=== PATIENT | female | born 1975 | race Caucasian/White ===

== ENCOUNTER 2017-02-07 13:44 | Inpatient (IN) ==
[2017-02-07 14:17] LABS: MANUAL DIFF NEEDED? NO
[2017-02-07 14:23] LABS: BASO% 0.3 % (0.0-0.8); EOS# 0.27 X1000 (0.0-0.7); EOS% 2.3 % (0.0-10.0); HEMATOCRIT 42.2 % (37.0-47.0); HEMOGLOBIN 13.6 g/dL (12.0-16.0); IMM GRAN# 0.02 X1000 (0.0-0.04); IMM GRAN% 0.2 % (0.0-0.5); LYMPH# 1.79 X1000 (1.2-3.4); LYMPH% 15.2 % (20.5-51.1); MCH 29.6 PG (27-31); MCHC 32.2 g/dL (33-37); MCV 91.9 FL (81-99); MONO# 0.66 X1000 (0.11-0.59); MONO% 5.6 % (1.7-9.3); MPV 11.7 FL (7.4-10.4); NEUT% 76.4 % (42.2-75.2); PLT 256 X1000 (130-400); RBC 4.59 XMIL (4.2-5.4)
[2017-02-07 14:37] LABS: INR 1.02; PROTIME 10.7 Seconds (9.2-11.7); PTT 25.7 Seconds (22.0-36.0)
--- NOTE | 2017-02-07 14:46 | EKG Report ---
Test Performed on : 02/07/2017 1:53:10 PM Test Reason : Stroke like symptoms Blood Pressure : / mmHG Vent. Rate : 078 BPM Atrial Rate : 073 BPM P-R Int : 000 ms QRS Dur : 092 ms QT Int : 386 ms P-R-T Axes : 000 019 041 degrees QTc Int : 440 ms Accelerated Junctional rhythm. Abnormal ECG When compared with ECG of 26-AUG-2015 21:55, Junctional rhythm. has replaced Sinus rhythm. Unconfirmed Result
[2017-02-07 14:56] LABS: AGAP 15; ALBUMIN 3.3 g/dL (3.5-5.0); ALKALINE PHOSPHATASE 81 U/L (32-104); BUN 8 mg/dL (8-22); CALCIUM 8.6 mg/dL (8.8-10.2); CHLORIDE 98 mmol/L (98-107); COSMO 280; GOT 12 U/L (10-30); GPT 13 U/L (10-36); POTASSIUM 3.7 mmol/L (3.5-5.1); SODIUM 136 mmol/L (136-145); TCO2 23 mmol/L (25-35); TOTAL BILIRUBIN 0.59 mg/dL (0.20-1.00); TOTAL PROTEIN 6.7 g/dL (6.3-8.3)
--- NOTE | 2017-02-07 15:09 | Diag Imaging Result Doc PS360 ---
EXAM: CT HEAD W/O CONTRAST HISTORY: stroke like symptoms TECHNIQUE: CT of the head without contrast with dose reduction (clarity.) COMMENT: There is no evidence of mass effect, shift, abnormal extra-axial fluid collection, hydrocephalus or bleed. Compared to 11/21/2015 there is been no significant change in the appearance of the brain. The visualized paranasal sinuses are clear. IMPRESSION: No evidence of acute intracranial disease Electronically signed by Heath Campos 02/07/2017 3:07 PM
--- NOTE | 2017-02-07 15:39 | Diag Imaging Result Doc PS360 ---
EXAM: CHEST-2 VIEWS HISTORY: stroke like symptoms TECHNIQUE: AP sitting and lateral chest COMMENT: The appearance of the chest has not changed significantly since 09/26/2014. IMPRESSION: Stable chest. Electronically signed by Heath Campos 02/07/2017 3:37 PM
[2017-02-07 20:29] LABS: URINE MICRO REVIEW NEEDED? NO; URINE SOURCE CLEAN CATCH
[2017-02-07] MEDS ORDERED: GLUCAGON SUBQ PRN (20:31)
[2017-02-07 20:35] LABS: BILIRUBIN URINE NEGATIVE (NEGATIVE); BLOOD URINE NEGATIVE (NEGATIVE); COLOR ORANGE; GLUCOSE URINE 1000 mg/dL (NEGATIVE); LEUKOCYTES URINE TRACE (NEGATIVE); NITRITE URINE NEGATIVE (NEGATIVE); PH URINE 5.5; PROTEIN URINE NEGATIVE (NEGATIVE); SP GRAVITY URINE 1.024; TURBIDITY URINE TURBID (CLEAR); UROBILINOGEN URINE 2 mg/dL (NORMAL)
[2017-02-07 20:37] LABS: UR EPITHELIAL CELLS <10 /HPF (<10); URINE BACTERIA 1+ /HPF; URINE CULTURE NEEDED? YES; URINE RBC <10 /HPF (<10); URINE WBC <10 /HPF (<10)
[2017-02-07 21:00] LABS: UR AMPHETAMINES MT NONE DETECTED (NONE DETECT); UR BARBITUATES MT NONE DETECTED (NONE DETECT); UR BENZODIAZ MT NONE DETECTED (NONE DETECT); UR CANNABIS MEDTOX NONE DETECTED (NONE DETECT); UR COCAINE MT NONE DETECTED (NONE DETECT); UR METHADONE MEDTOX NONE DETECTED (NONE DETECT); UR OPIATES MT NONE DETECTED (NONE DETECT); UR OXYCODONE MEDTOX NONE DETECTED (NONE DETECT); UR PCP MEDTOX NONE DETECTED (NONE DETECT)
--- NOTE | 2017-02-07 22:14 | HISTORY AND PHYSICAL ---
PCP: None. CHIEF COMPLAINT: Weakness on the left side of her body. HPI: Mrs. Trejo is a 41-year-old female with past medical history of diabetes type 2, an OK 4 years ago, Crohn disease and frequent shingles outbreaks who comes to the hospital reporting left- sided body weakness in upper and lower extremities. The patient states that yesterday in the morning around noon when she woke up she could not feel her left foot at all. The patient had trouble walking throughout the day then numbness and tingling gradually became worse. The patient states that her 16-year-old daughter noticed that she had drooping on the left side of her mouth and patient has been drooling since then. Patient has been having trouble walking since she cannot feel her foot. Initially patient did not want to stay in the hospital due to has insurance issues. However she decided to stay for further workup. REVIEW OF SYSTEMS: Is positive for numbness and tingling of her face on the left side, decreased strength in her left arm and left leg. All other systems are negative except as stated above. ALLERGIES: Penicillin, cephalosporins, Zithromax, steroids. HOME MEDICATION: The patient is supposed to be taking 18 units of Lantus every day in the morning. However patient is not compliant and takes her insulin only when her glucose levels are high. Patient states in the last few days her glucose has been around 200 and has not been taking her medication. Also she is supposed to be taking metformin 500 mg twice a day but she has not been taking it. FAMILY HISTORY: Father of an OK. Mother had 6 strokes, 4 MIs and breast cancer. SOCIAL HISTORY: Patient smokes 1 pack every 2-3 days. Denies using alcohol or illicit drugs. PHYSICAL EXAM: VITAL SIGNS: Temperature 98.3 degrees, pulse 69, respirations 20, blood pressure 149/88. Oxygen saturation 99% on room air. GENERAL: Patient is alert and oriented x3. No acute distress. HEENT: Head is normocephalic, atraumatic. Eyes, CHIN. Moist mucous membranes. Slight drooping on the left side of her face. NECK: Supple. No JVD. CHEST: Clear to auscultation. Good air entry in both lung miguel. No wheezing, rales. CARDIOVASCULAR: S1, S2. No rubs, murmurs, or gallops. ABDOMEN: Soft, nondistended, nontender. EXTREMITIES: No lower extremity edema. Right side upper and lower extremities +5/5. Left hand strength +1/5. Left lower extremity strength +1/5. Patient is unable to lift her heel off the bed. NEUROLOGIC: When patient is asked to smile there is an obvious drooping on the left side of the mouth. The patient is unable to blow her cheeks especially on the left side. As mentioned above, decreased strength in the left upper and lower extremities. The patient has a positive pronator drift on the left side. The patient cannot lift her left heel out of bed. PSYCH: Normal mood and affect. LABORATORY DATA: White blood cell count 11.8, hemoglobin 13.6, hematocrit 42.2, platelets 256,000. Sodium 136, potassium 3.7, BUN 8, creatinine 0.5. LFTs within normal limits. Troponin #1 negative. Urine toxicology negative. UA negative. HCG negative. DIAGNOSTIC IMAGING: Head CT shows no evidence of acute intracranial disease. Chest x-ray is stable. No changes since 2014. ASSESSMENT AND PLAN: 1. Stroke. The patient has had her symptoms over 24 hours now. The patient has as mentioned above pronator drift and significant weakness on the left side of her body and drooping of the left side of her mouth. The patient has been started on full dose aspirin and statin. We will obtain a brain MRA and neck MRA, also an echocardiogram and a neurology consult for tomorrow. PT was asked to evaluate the patient tomorrow as well. 2. Diabetes type 2. The patient is not compliant with her medication. We will continue her home dose of insulin 18 units in the morning and she is also on an insulin sliding scale. Glucose is available p.r.n. hypoglycemia. A1c is pending. Tomorrow we will obtain a lipid panel as well. 3. Coronary artery disease. As mentioned above, we will start patient on aspirin and a statin. 4. Crohn disease, stable. cc: Aicha Herrera MD
[2017-02-07] MEDS ORDERED: HUMALOG SUBQ SCH (22:17)
[2017-02-08] MEDS: LOVENOX SUBQ SCH ×2 (00:02→21:41)
[2017-02-08] MEDS: ZOCOR PO SCH ×2 (00:03→21:41)
[2017-02-08] MEDS: HUMALOG SUBQ SCH ×5 (00:03→21:41)
[2017-02-08 06:32] LABS: HEMOGLOBIN A1C 10.7 % (4.8-6.0)
[2017-02-08] MEDS ORDERED: INSULIN PEN NEEDLES ONE (07:12)
[2017-02-08] MEDS ORDERED: LANTUS SUBQ SCH (09:00)
--- NOTE | 2017-02-08 13:09 | Diag Imaging Result Doc PS360 ---
EXAM: MRI BRAIN W W/O CONTRAST - 02/08/2017 HISTORY: R/O stroke TECHNIQUE: Images are obtained prior to and following Omniscan administration. COMPARISON: CT head of 02/07/2017 FINDINGS: There are scattered small white matter signal abnormalities. The patient this age, these could relate to demyelinating disease or to chronic microvascular ischemic changes. The diffusion weighted images show no areas of restricted diffusion (no evidence of acute infarct). There is no evidence of hemorrhage, mass effect, midline shift, or hydrocephalus. There is no abnormal enhancement identified. There is some cerebellar tonsillar ectopia which may relate to Chiari I malformation. IMPRESSION: Scattered small white matter signal abnormalities. These may relate to demyelinating disease or to chronic microvascular ischemic changes. There is no evidence of acute infarct. No hemorrhage, mass, or abnormal enhancement seen. Possible Chiari I malformation noted. Electronically signed by Efren Perkins 02/08/2017 1:06 PM
--- NOTE | 2017-02-08 13:11 | Diag Imaging Result Doc PS360 ---
EXAM: MRA BRAIN W/O CONTRAST - 02/08/2017 HISTORY: stroke TECHNIQUE: Without contrast [id number] MR angiogram brain with reconstructed 3-D rotating MIP images. COMPARISON: None. FINDINGS: There is no evidence of major intracranial arterial occlusion. There is no substantial stenosis of major intracranial arteries identified. There is no aneurysm identified. IMPRESSION: Unremarkable exam. Electronically signed by Efren Perkins 02/08/2017 1:09 PM
--- NOTE | 2017-02-08 13:15 | Diag Imaging Result Doc PS360 ---
EXAM: MRA NECK W/CONT - 02/07/2017 HISTORY: stroke TECHNIQUE: MR angiogram of the carotid circulation in the neck obtained following Omniscan administration, reconstructed 3-D rotating MIP images. COMPARISON: None. FINDINGS: There is no right carotid stenosis identified. There is no left carotid stenosis identified. IMPRESSION: Unremarkable exam. Electronically signed by Efren Perkins 02/08/2017 1:13 PM
[2017-02-08] MEDS: ASPIRIN PO SCH (13:41)
--- NOTE | 2017-02-08 13:56 | PROGRESS NOTE ---
DATE: 02/08/2017 SUBJECTIVE: This patient states that she is feeling better but she is still having mild weakness and loss of sensation mostly at the level of the left lower extremity, she has no problem swallowing, no double vision, no headache, no shortness of breath. No nausea, vomiting, no diarrhea, no constipation. OBJECTIVE: Vital Signs: Temperature 98.2 degrees, pulse 74, respiratory rate 20, blood pressure 143/62, oxygen saturation 98 on room air. HEENT: Head normocephalic. No trauma. PERRLA. Neck: Supple. No JVD. No masses. Central trachea. Chest: Clear to auscultation. No wheezing. No rales. Abdomen: Soft, nontender, nondistended. No hepatosplenomegaly. Extremities: No edema. No clubbing. No cyanosis. Neurologic: Left over extremities with some mild weakness and she refers some tingling sensation on her fingers. Lower extremities. It looks like she has left lower extremity weakness 4/5 with some loss of sensation. ASSESSMENT AND PLAN: 1. Rule out stroke, pending MRI, MRA of the brain and neck report, neurology department has been consulted. Pending recommendations. 2. Type 2 diabetes. This patient is not compliant with her medications. Will continue with home dose of insulin and I will continue with sliding scale insulin for now. Hemoglobin A1c is 10.7 so it looks like this patient is not taking care of her diabetes at home. 3. History of coronary artery disease. This patient has been started on aspirin and statin. Apparently as per the patient, she has a remote history of myocardial infarction but I do not have any records from that. 4. Questionable history of Crohn's disease stable. 5. Hypertension. Her blood pressure has been stable. Continue to monitor. Since this patient has diabetes I will start this patient on a low dose of lisinopril. cc: Deni Beck MD
[2017-02-09 05:38] LABS: MANUAL DIFF NEEDED? NO
[2017-02-09 05:46] LABS: BASO% 0.4 % (0.0-0.8); EOS# 0.31 X1000 (0.0-0.7); HEMATOCRIT 38.2 % (37.0-47.0); HEMOGLOBIN 12.4 g/dL (12.0-16.0); IMM GRAN# 0.02 X1000 (0.0-0.04); IMM GRAN% 0.3 % (0.0-0.5); LYMPH# 1.57 X1000 (1.2-3.4); LYMPH% 20.3 % (20.5-51.1); MCH 29.7 PG (27-31); MCHC 32.5 g/dL (33-37); MCV 91.4 FL (81-99); MONO# 0.73 X1000 (0.11-0.59); MONO% 9.4 % (1.7-9.3); MPV 11.7 FL (7.4-10.4); NEUT% 65.6 % (42.2-75.2); PLT 243 X1000 (130-400); RBC 4.18 XMIL (4.2-5.4)
[2017-02-09 06:16] LABS: AGAP 16; BUN 12 mg/dL (8-22); CALCIUM 8.3 mg/dL (8.8-10.2); CHLORIDE 96 mmol/L (98-107); COSMO 284; POTASSIUM 3.6 mmol/L (3.5-5.1); SODIUM 137 mmol/L (136-145); TCO2 25 mmol/L (25-35)
[2017-02-09] MEDS: HUMALOG SUBQ SCH ×2 (07:29→12:49)
[2017-02-09] MEDS ORDERED: LANTUS SUBQ SCH (07:52)
[2017-02-09] MEDS ORDERED: PRINIVIL PO SCH (09:00)
--- NOTE | 2017-02-09 09:31 | ECHO REPORT ---
ORDER DATE: 02/07/2017 MEASUREMENTS: 1. Left ventricular end-diastolic diameter 5.4. 2. End systolic diameter 3.5. 3. Septal thickness 0.7. 4. Posterior wall thickness 1.0. 5. Left atrium 4.1. 6. Aortic root 2.5. SUMMARY: 1. Fair quality study. 2. Aortic valve is trileaflet and opens normally on 2-dimensional images. Mitral, tricuspid, and pulmonic valves are without evidence of structural abnormality. There is mild mitral regurgitation and trace tricuspid regurgitation. The aortic root is normal in size. 3. Normal left ventricular dimensions suggested. Estimated left ejection fraction appeared to be at least 60%. No regional wall motion abnormalities are evident. Left atrium is mildly enlarged. Right atrium and right ventricle are normal in size with normal right ventricular systolic function. 4. No pericardial effusion. 5. Inferior vena cava not well seen. CONCLUSIONS: 1. Mild mitral regurgitation. 2. Estimated left ejection fraction greater than 60%. 3. Mild left atrial enlargement. cc: MD Aicha Ramirez MD
[2017-02-09] MEDS: ASPIRIN PO SCH (09:50)
[2017-02-09 13:35] VITALS: BP 101/60
--- NOTE | 2017-02-09 14:53 | CONSULTATION ---
DATE OF CONSULTATION: 02/09/2017 Ms. Trejo is 41 years old. She was admitted with question of stroke. History from the patient is that she felt bad, tired, weak all over 3 days ago. She did not notice any focal neurologic problem then. On the day of admission 2 days ago, family noticed facial drooping and patient noticed left side felt numb and possibly weaker compared to the right. She presented to the hospital and was admitted. Workup includes initial noncontrast CT showing nothing acute. Brain MRI showed a good bit of white matter signal, consistent with micro-ischemic disease, but nothing focal or acute. Brain MRA and cervical MRA were unremarkable. Echocardiogram was unremarkable. She has had blood sugars elevated 200s and 300s this admission. She presented with systolic blood pressure 130s-140s. She started lisinopril here and blood pressures have been 90s to 110s systolic since then. Interestingly, she was having headache daily for the last several months, but no headache in the last 2 days since starting lisinopril. PAST MEDICAL HISTORY: She has a past history of episodic headache, usually several headaches per year. FAMILY HISTORY: There is family history of headache in 2 sisters, possibly mother. SOCIAL HISTORY: She had recently reduced her caffeine intake from 6 or 8 sodas daily to about one soda daily. CASE COORDINATOR HISTORY: She has recently noted irregular menstrual periods. She has never used hormones. There is history of head injury with loss of consciousness when she fell and struck her head about a year ago. She recovered without focal neurologic features. There is not history of more recent head injury. She has never had diagnosed stroke or other neurologic event. On exam, she is awake, alert, attentive. She seems appropriate. Speech is not dysarthric. Language function is intact. Memory seems good. Head and neck are unremarkable. Visual miguel are full, tested grossly. Facial motility appears symmetric now. Facial sensation is intact. Gag is intact. Tongue is midline. She can hear. Shoulder shrug is equal. Strength is normal in the arms and legs, equal on the left and right. Tone is symmetric in the limbs. She did well on [id number] testing bilaterally. She reports diminished pinprick appreciation in a stocking pattern bilaterally. This is subjectively a little more prominent on the left than the right, but there is not a definite focal finding. She reports difficulty with proprioception at the great toe bilaterally, also a little worse on the left. I did not test her gait. Reflexes are 1+ at the wrists and absent at the ankles bilaterally. Plantar response is silent bilaterally. IMPRESSION: 1. Recent subjective left-sided numbness and generally weak all over feeling. I suspect this is more likely migraine than focal ischemic problem. I do not find a definite motor deficit now. The sensory findings are more consistent with peripheral neuropathy, likely diabetic neuropathy, than with a lateralizing COTTAGE ATTENDANT event. I encouraged her to be aggressive with management of her cerebrovascular risk factors including quitting smoking, being aggressive with management of blood pressure and blood sugar, taking daily aspirin started here, and getting established with primary clinic so that cholesterol and other lab can be followed. 2. She has a history of episodic headache, typical of migraine with usual family history noted. She had developed a chronic daily headache syndrome recently. We discussed the possible explanations for development of daily headache, including likely combination of factors with elevated blood pressure and manjeet-menopausal sate. Caffeine reduction may have played a role. I do not see evidence of increased intracranial pressure. Negative imaging is reassuring. If she continues to have frequent headaches, we can treat that more specifically later. Thanks for asking me to see Ms. Trejo. cc: MD TARA Piedra III
--- NOTE | 2017-02-10 08:31 | DISCHARGE SUMMARY ---
ADMISSION DATE: 02/07/2017 DISCHARGE DATE: 02/09/2017 CONSULTATIONS: Dr. Alan Rock with Neurology. PERTINENT PROCEDURES: 1. Head CT showed no evidence of acute intracranial disease. 2. Echocardiogram showed mild mitral regurgitation with a EF of 60%, mild left atrial enlargement. 3. Neck MRA unremarkable. 4. Brain MRA unremarkable. 5. Brain MRI, no hemorrhage, mass or abnormal enhancement seen. Possible Chiari I malformation noted. Scattered small white matter signal abnormalities. These may relate to demyelinating disease or chronic microvascular ischemic changes. No evidence of acute infarct. DISCHARGE DIAGNOSES: 1. Rule out stroke. Head CT, brain MRI, brain MRA, and neck MRA all negative. Seen by Neurology who feels like the patient is having migraines recommends weight loss , diabetes control as well as blood pressure control. 2. Migraines, assessed by Neurology, again recommends weight loss and diabetes control as well as tight blood pressure control. 3. Diabetes mellitus type 2. She is noncompliant. Hemoglobin A1c was 10.7. The patient has been educated on being compliant. 4. History of coronary artery disease. Patient was started on aspirin and a statin. According to her, she has a remote history of myocardial infarction but we could not find any records of that. 5. Questionable history of Crohn's disease, stable. 6. Hypertension. Blood pressure has been stable. Continue with low-dose lisinopril. HOSPITAL COURSE: Ms. Trejo is a 41-year-old female with a past medical history of type 2 diabetes, questionable CT 4 years ago, Crohn disease, frequent shingles outbreaks came to the hospital reporting left-sided body weakness in the upper and lower extremities. States that when she woke up around noon, she could not feel her left foot. She had trouble walking throughout the day, then numbness and tingling gradually became worse. Her 16-year-old daughter noticed that she had drooping on the left side of her mouth, and the patient had been drooling since then, as well as having trouble walking, because she could not feel her foot. Initially, the patient did not want to stay in the hospital due to insurance issues. However, she decided to stay for further workup. Head CT was negative. She was admitted for stroke workup with a neurological consult. Echocardiogram showed mitral regurgitation and an EF of greater than 60%. Neck MRA, brain MRA and brain MRI were all essentially negative. Brain MRI showed scattered small white matter. Signal abnormalities may relate to demyelinating disease or chronic microvascular ischemic changes. No evidence of acute infarct. No hemorrhage, mass or abnormal enhancement seen. Possible Chiari I malformation noted. She was assessed by Dr. Rock who felt that the patient was having migraines. He recommended weight loss, tight control of her diabetes, as well as tight control of her blood pressures. She is being discharged home today. VITAL SIGNS: Temperature is 98.6 degrees, heart rate 100, respirations 18, blood pressure 101/60, and O2 is 96% on room air. DISPOSITION: She states she is feeling better. She still has some mild weakness and loss of sensation at the level of her left lower extremity, but no other associated problems. DISCHARGE DIET: Diabetic. DISCHARGE MEDICATIONS: As per Dr. Polanco: 1. Aspirin 81 mg p.o. daily. 2. Lantus 25 units subcutaneous q.a.m. 3. Prinivil 10 mg p.o. daily. 4. Glucophage 500 mg p.o. b.i.d. 5. Zocor 80 mg p.o. at bedtime. FOLLOWUP: Ms. Trejo is being discharged home with self care. She will need to follow up with the primary care physician, given the list has been provided to her in 1 week. She can return to the ED for any worsening of symptoms. I personally evaluated this patient face to face, images and lab work were reviewed, She has no evidence of stroke, possible migraine, I am concerned about medication noncompliance because even though she knows about her comorbidities she is not taking her meds as prescribed, I agree with the assessment and plan for this patient, and can be discharged today, Deni Guzmán MD Dictated by CAROLINE Guthrie for Deni Beck MD cc: Deni Beck MD [facility]
--- NOTE | 2017-02-10 11:51 | Carotid Study ---
DATE: 02/07/2017 PROCEDURE: Carotid duplex imaging. REFERRING PHYSICIAN: INTERPRETING PHYSICIAN: Arnie Navarro MD. TECH: INDICATIONS: The patient has left-sided weakness, left facial droop. OBSERVED DATA RIGHT LEFT Brachial Blood Pressure Carotid Pulse Bruits: Carotid/Sub DIAGRAM OF ULTRASOUND IMAGING R L RIGHT INT EXT INT EXT LEFT Ulises (cm/s) Ulises (cm/s) Subclavian 80/0 Subclavian 102/0 CCA Proximal 114/32 CCA Proximal 105/28 CCA Distal 87/30 CCA Distal 104/34 Bulb 87/26 Bulb 73/25 ICA Proximal 76/25 ICA Proximal 69/24 ICA Mid 73/27 ICA Mid 66/30 ICA Distal 79/31 ICA Distal 79/32 ECA 101/23 ECA 94/21 Vertebral 57/15 A Vertebral 90/24 A ICA/CCA Ratio 0.7 ICA/CCA Ratio 0.8 % Stenosis 0-39 % Stenosis 0-39 FINDINGS: No significant plaque is identified. PHYSICIAN INTERPRETATION: No significant plaque disease identified. There is antegrade vertebral flow bilaterally. cc: MD Aicha Patton MD
--- NOTE | 2017-02-25 01:02 | ED EKG INTERP ---
This chart was entered by Eulalia Leo Scribe, acting as scribe for Felix Cameron MD. EKG Interpretation - EKG Time of EKG reading by physician:: 13:53 EKG Read and Signed by:: Jesus Ugalde EKG Interpretation (*Must complete 3 of following elements*): Abnormal Rate: 78 Rhythm: Accelerated Junctional rhythm. [place]: normal (PRT axis * 19 41.) QRS: normal (QRS duration 92 ms.) Attestation - Physician/ [facility] Attestation Patient care was provided by Advanced Practice Provider:: No The physician spent face to face time with patient:: Yes Advanced Practice Provider documentation review:: Supervising physician onsite and consulted in the evaluation and care of this patient. The physician did have a face to face encounter with the patient. This chart was documented by the indicated scribe, (Eulalia Leo Scribe) and accurately reflects the services I performed and decisions made by me, Felix Cameron MD, as attested by the provider's signature.
--- NOTE | 2017-03-04 11:51 | PROVIDER DOCUMENTATION ---
This chart was entered by Eulalia Leo Scribe, acting as scribe for Felix Cameron MD. HPI-Neurological Disorder - General Chief Complaint: Chest Pain Stated Complaint: LEFT SIDE NUMBNESS,CHEST PAIN Time Seen by Provider: 02/07/17 14:05 Source: patient Allergies/Adverse Reactions: Patient Allergies Allergy/AdvReac Type Severity Reaction Status Date / Time cephalexin monohydrate * Allergy Intermediate nauseated Verified 02/07/17 13:54 [From Keflex] Corticosteroids Allergy Intermediate RASH Verified 02/07/17 13:54 (Glucocorticoids) doxycycline Allergy Mild dizzy, Verified 02/07/17 13:54 hives codeine Allergy Unknown Verified 02/07/17 13:54 latex Allergy RASH Verified 02/07/17 13:54 tramadol Allergy Unknown Verified 02/07/17 13:54 adhesive AdvReac RASH Verified 02/07/17 13:54 Home Medications: Home Medication List Medication Instructions Recorded Confirmed Last Taken Type Aspirin EC 81 mg PO DAILY #90 tablet 02/09/17 Unknown Rx Insulin Glargine [Lantus] 25 unit SUBQ QAM #2 insuln.pen 02/09/17 Unknown Rx LISINOpril [Prinivil] 10 mg PO DAILY #90 tablet 02/09/17 Unknown Rx Metformin [Glucophage] 500 mg PO BID #120 tablet 02/09/17 Unknown Rx SIMVAstatin [Zocor] 80 mg PO QHS #90 tablet 02/09/17 Unknown Rx - History of Present Illness-Neuro Nature of Presenting Problem: 41 year-old female presents to the ER with left sided weakness with numbness and tingling in her left upper and lower extremities. Her symptoms began on 02/06. Her family noticed drooping on the left side of her mouth. Her left lower extremity has been swollen. She reports that she can hold things in her left hand, but can't actually feel them. She also reports pain in her head that she describes as pressure. She had substernal chest pain that went through to her back and radiated to her left shoulder and upper arm yesterday as well, but reports no chest pain today. She has history of diabetes and takes Insulin and Metformin. She has history of [place] but has not been taking her heart medication for some time due to not having insurance or funds to by her medication. She has had occasional shortness of breath but denies any upon examination. She also reports that since her symptoms began she has had to have assistance with ambulation. She smokes on pack per day and has smoked since age 9. No other symptoms are presented at this time. Severity: reports: moderate Onset/Duration: reports: 24 hours ago Timing: reports: still present Context: reports: facial droop Character of Altered Mental Status: reports: N/A Any recent trauma/injury?: reports: none Character of Deficits: reports: new weakness, altered sensation, decreased ability to walk. denies: vision problem/glaucoma, impaired speech, impaired swallowing New weakness or altered sensation location:: reports: LUE, LLE, left facial Cognitive Baseline: alert, oriented x3 Gait Baseline: walks without assistance Associated Symptoms: reports: short of breath, headache, dizziness, chest pain, trouble walking, weakness. denies: loss of consciousness, nausea, slurred speech Similar Symptoms Previously?: No Recently seen or treated by another doctor?: No Review of Systems - Adult - REVIEW OF SYSTEMS - ADULT Constitutional: reports: no symptoms reported, see HPI Eyes: reports: no symptoms reported, see HPI. denies: decreased vision, blurred vision, double vision Ears, Nose, Mouth & Throat: reports: no symptoms reported, see HPI Cardiovascular: reports: see HPI, chest pain, edema. denies: syncope Respiratory: reports: see HPI, dyspnea on exertion, shortness of breath Gastrointestinal: reports: no symptoms reported, see HPI. denies: abdominal pain, constipation, diarrhea, nausea, vomiting Genitourinary: reports: no symptoms reported, see HPI. denies: dysuria, incontinence, urgency Musculoskeletal: reports: see HPI. denies: no symptoms reported, back pain, joint pain Integumentary: reports: see HPI. denies: no symptoms reported Neurological: reports: see HPI, dizziness/vertigo, headache/migraines, numbness , paresthesia Psychiatric: reports: no symptoms reported, see HPI Endocrine: reports: no symptoms reported, see HPI Hematologic/Lymphatic: reports: no symptoms reported, see HPI Allergic/Immunologic: reports: no symptoms reported, see HPI All Other Systems: Reviewed and Negative Past History - Adult - PAST MEDICAL HISTORY-ADULT Review of Records: reports: Old Records Reviewed, Nursing Assessment Review, Medications Reviewed, Social history reviewed & non-contributory. Major Childhood Illnesses: reports: denies history Cardiovascular: reports: hyperlipidemia, [place] Gastrointestinal: reports: Crohn's Musculoskeletal: reports: denies history Neurological: reports: denies history Psychiatric: reports: depression Endocrine/Immune: reports: Diabetes Other Conditions: reports: denies history - PRIOR SURGERIES/PROCEDURES Surgical/Procedure History: reports: orthopedic (extremity) (R thumb) - PRIOR HOSPITALIZATIONS Prior Hospitalizations: reports: none - IMMUNIZATION STATUS Childhood Immunizations: NUTD, See Nurse Assessment Flu Vaccine: NUTD - FAMILY HISTORY Family History: diabetes, CVA/TIA (Mother), other ([place]'s) - SOCIAL HISTORY Smoking: cigarettes, less than 1 pack/day (1/2 pack per day) Substance Use: none/never Alcohol Use Frequency: never Living Situation: family Physical Exam- Neurological - Physical Exam-Neuro Initial Vital Signs Reviewed: Yes General Appearance: alert, no apparent distress Eye Exam: bilateral eye: normal inspection, PERRL, EOMI HENMT: normocephalic/atraumatic, moist mucous membranes, pharynx normal Head Injury: no evidence of injury. negative: tenderness Neck: non-tender, full range of motion, supple. negative: carotid bruit Respiratory: chest non-tender, lungs clear, normal breath sounds. negative: no pleuratic chest pain, no respiratory distress, no accessory muscle use, crackles , rales, rhonchi, wheezing Cardiovascular: normal peripheral pulses, regular rate, rhythm. negative: no edema, no murmur Abdominal Exam: normal bowel sounds, non tender, soft. negative: distended, rebound, tenderness Lymphatic: negative: no adenopathy Extremity: normal range of motion, non-tender, no pedal edema, no calf tenderness inbound call center representative Exam: normal hearing, normal speech, PERRL, facial droop (Mild left). negative: abnormal gag reflex, abnormal speech, facial paresthesias, facial weakness, tongue deviation to R, tongue deviation to L Motor/Sensory: weak motor strength LUE, weak motor strength LLE. negative: no sensory deficit, sensory deficit, weak motor strength RUE, weak motor strength RLE Neurologic: inbound call center representative II-XII nml as tested, facial droop (Mild left side of mouth.), motor weakness (Left upper and lower extremities 3/5 weakness.). negative: aphasia, sensory deficit Integumentary: normal color, warm/dry. negative: diaphoresis, swelling, warm Psych/Mental Status: normal mood/affect, normal thought content, normal thought process, oriented x 3 - Glascow Coma Scale Best Eye Response: (4) open spontaneously Best Verbal Response: (5) oriented Best Motor Response: (6) obeys commands Total Glascow Score: 15 Progress - PLAN OF CARE/RESULTS Progress/Plan/Lab Results: Bedside Urine ED: Urine Bedside Start: 02/07/17 14:04 Freq: ORDERED Status: Inactive Activity Type Activity Date Activity User E-Sign Co-Sign Detail Recorded Client Recorded Date Recorded By Edit Status 02/07/17 14:17 [id number] Active=>Inactive [id number] 02/07/17 14:17 [id number] Orders Category Date [facility] Routine [id number] 02/07/17 22:17 Ordered Activity - Strict Bedrest Q1D Care 02/07/17 22:17 Active Aspiration Precautions DIRECTED Care 02/07/17 22:17 Active ED: Urine Bedside ORDERED Care 02/07/17 14:04 Inactive Elevate Head of Bed DIRECTED Care 02/07/17 22:17 Active Finger Stick Blood Sugar (ED) DIRECTED Care 02/07/17 13:50 Completed IV Insertion ORDERED Care 02/07/17 22:17 Completed Intake and Output-Strict ORDERED Care 02/07/17 22:17 Active Neurological Check ORDERED Care 02/07/17 22:17 Active Vital Signs Order Q 4-HR ASSESS Care 02/07/17 22:17 Completed Z-Document. for Tele Applied ORDERED Care 02/07/17 22:17 Completed Social Service Consult Routine Cons 02/07/17 22:17 Active NPO Diet 02/07/17 Lunch Completed CHEST-2 VIEWS [RAD] Stat Exams 02/07/17 13:[address] HEAD W/O CONTRAST [CT] Stat Exams 02/07/17 13:50 Completed MRA BRAIN W/O CONTRAST [MRI] Routine Exams 02/08/17 07:00 Completed A1C HGB W EST AVG GLUCOSE [CHEM] Routine Lab 02/08/17 05:40 Completed CBC WITH ELECTRONIC DIFF [HEME] Stat Lab 02/07/17 13:56 Completed COMPREHENSIVE METABOLIC PANEL [CHEM] Stat Lab 02/07/17 13:56 Completed LIPID PROFILE W/DIR LDL [LIPIDS] Routine Lab 02/08/17 05:40 Completed TEST-URINE [PREG] Stat Lab 02/07/17 14:06 Completed PROTIME WITH INR [COAG] Stat Lab 02/07/17 13:56 Completed PTT [COAG] Stat Lab 02/07/17 13:56 Completed TROPONIN T Stat Lab 02/07/17 13:56 Completed URINALYSIS W/POSS RFLX CULT-1 [URINALYSIS] Stat Lab 02/07/17 14:06 Completed URINE CULTURE [RM] Routine Lab 02/07/17 20:51 Completed URINE DRUG SCREEN MEDTOX Stat Lab 02/07/17 14:06 Completed Aspirin Med 02/08/17 09:00 Discontinued 325 mg PO DAILY Enoxaparin [Lovenox] Med 02/07/17 22:17 Discontinued 40 mg SUBQ Q24H Glucagon Med 02/07/17 20:31 Discontinued 1 mg SUBQ PRN PRN Insulin Glargine [Lantus] Med 02/08/17 09:00 Discontinued 18 unit SUBQ QAM Insulin Lispro [Humalog] Med 02/07/17 22:17 Discontinued See Protocol SUBQ 0700,1100,1600,2100 SIMVAstatin [Zocor] Med 02/07/17 22:17 Discontinued 80 mg PO QHS Telemetry [OM.EQ] Routine Oth 02/07/17 22:17 Active Carotid Ultrasound Routine Ther 02/07/17 22:17 Completed EKG [EKG] Stat Ther 02/07/17 13:50 Draft Echo Spec/Color Dop W/O Contra Routine Ther 02/07/17 22:17 Draft Physical Therapy Eval/Treatment [OM.PT] Routine Ther 02/07/17 22:17 Active Speech Evaluation [OM.SPT] Routine Ther 02/07/17 22:17 Active Transfer/Admit Order [TRANSFER] Routine Transfer 02/07/17 20:13 Completed Result Diagrams: 02/09/17 05:19 02/09/17 05:19 - CT/MRI 1 CT Study: Head Impression: Normal CT Results: No evidence of intracranial disease. - CONSULTS/PCP/HOSPITALIST Notification Time Discussed: 16:33 Departure - Departure Date of Disposition Decision: 02/05/17 Time of Disposition Decision: 16:33 DIAGNOSIS: CVA (cerebral vascular accident) Disposition: ADMITTED INPATIENT 09 Certified Medical Emergency: Emergent Condition: Stable - Critical Care Note This patient required my direct & personal management of CC.: No Attestation - Physician/ [facility] Attestation Patient care was provided by Advanced Practice Provider:: No The physician spent face to face time with patient:: Yes Advanced Practice Provider documentation review:: Supervising physician onsite and consulted in the evaluation and care of this patient. The physician did have a face to face encounter with the patient. - NIH Stroke Scale Level of Consciousness: 0-Alert LOC Questions (ask month and age): 0-Answers Both Correctly LOC Commands (ask to open & close eyes;make a fist, let go): 0-Obeys Both Correctly Best Gaze (horizontal eye movement): 0-Normal Visual (use finger movement, counting or visual threat): 0-No Visual Loss Facial Palsy (show teeth or raise eyebrows & close eyes tght: 1-Minor Paralysis Motor Function-left arm: 2-Some Effort Against [place] Motor Function-right arm: 0-Normal Motor Function-left le-Some Effort Against [place] Motor Function-right le-Normal Limb Ataxia([id number]-[id number], or heel to romero): 2-Present in two limbs Sensory(pin prick to face,arms,trunk,legs-compare side/side): 0-No Ataxia Best Language(name item/read sentence.Ex-Down to Earth): 0-No Aphasia Dysarthria(Pt read words or say words Ex.Mama,Tip-Top,Thanks: 0-Normal Articulation Extinction and Inattention: 0-Normal Stroke tPA Guidelines - Inclusion Criteria for IV tPA Onset <3 hours ago *OR* 3-4.5 hours ago: Yes (Symptoms began on 02/06/17.) This chart was documented by the indicated scribe, (Eulalia Leo, Scribe) and accurately reflects the services I performed and decisions made by me, Felix Cameron MD, as attested by the provider's signature.
== END 2017-02-09 14:47 | disposition home or self-care (01) ==
LOC: ED 13:44 → 4N 21:59 → SUATTDRO 21:59
PROVIDERS: ATTEND Internal Medicine